=== PATIENT | male | born 1940 ===

== ENCOUNTER → 2017-01-24 | Outpatient (CLI) | payer OTHER ==
[~2017-01-24] MED LIST: IOHEXOL 180 MG/ML 10 ML VIAL. ONE; TRAM50TA PO; methylPREDNISolone ACETATE 40 MG/ML VIAL. ONE; methylPREDNISolone ACETATE 80 MG/ML VIAL. ONE
--- NOTE | 2017-01-25 04:29 | CONS ---
DATE OF CONSULTATION: 01/24/2017 CHIEF COMPLAINT: Low back pain and bilateral lower extremity pain. HISTORY OF PRESENT ILLNESS: This is a 77-year-old male who presents with history of pain for about 30 years, increasing worse over the past 2 years or so in the low back itself, also some pain radiating in the posterior gluteus, posterior lateral thighs and lower legs, but mostly staying in the low back. The patient reports it is spreading in the upper back and shoulders as well, worse with activity, not a result of any specific injury or action he is aware of, but has had multiple injuries to his back over the years including a body cast in 1957. The patient reports he has had all kinds of epidural injections, trigger point injections, physical therapy, chiropractic treatment, exercises, counseling over the years, also had radiofrequency ablation, but a year and a half ago at [facility] by his report and previous epidural injections, all of which were helpful, but only temporary. The patient reports it awakens him from sleep occasionally, but not every night. It does not affect his bowel or bladder control, but does affect his ability of walk. He is using cane, usually in his right hand. The patient reports no loss of motor function, but he does feel unstable without the cane. The patient reports the pain is a constant pain, sharp, stabbing across the low back, shooting into the legs with some tingling as well and aching. The patient reports also some muscle spastic pain in the low back and sharp pain that is worse with walking and changing positions. The patient has been taking tramadol, which he reports helps some, he usually takes in the morning once a day. The patient reports the pain is usually better in the morning and as the day goes on it gets worse and worse across the low back, into the lower extremities and into the upper mid back. The patient rates his disability rate from 0-10, 10 being the worst, 5 to 9 in all categories, family and home responsibilities, recreation, social activity, occupation, sexual behavior, self-care and life support activities. PAST MEDICAL HISTORY: Significant for hearing loss, hypertension, arthritis, and headaches. PREVIOUS SURGERY: Includes a left total hip replacement 3-4 years ago. Also, history of skin cancers. CURRENT MEDICATIONS: Include tramadol, lisinopril, and a cholesterol pill, he is unsure of the name. FAMILY HISTORY: Significant for hypertension as well. SOCIAL HISTORY: The patient does not smoke, does not drink alcohol. Lives at home on his own and [place] is currently retired. REVIEW OF SYSTEMS: The patient's review of systems is positive for those items mentioned in history of present illness. All systems were reviewed and otherwise negative. It is complete, full and well documented on the patient's chart. PHYSICAL EXAMINATION: VITAL SIGNS: The patient's blood pressure is 126/89, pulse 63, respirations 18, temperature 98.8 degrees Fahrenheit, height is 5 feet 10 inches, and weight is 233 pounds. GENERAL: The patient is awake, alert, oriented, appropriate, very pleasant demeanor. HEENT: Head shows normocephalic, atraumatic. Extraocular movements are intact and symmetrical. Oral cavity shows mucous membranes moist and pink. Dentition is intact. NECK: Shows anterior throat supple without palpable lymphadenopathy noted. Swallow reflex is symmetrical. Neck shows full rotational motion of cervical spine, both laterally as well as extension and flexion without difficulty. CHEST: Shows normal on inspection. Breath sounds are clear to auscultation bilaterally. HEART: Shows S1 and S2 clear. No murmurs auscultated. ABDOMEN: Soft, nontender, and nondistended. No palpable organomegaly is noted. No rebound or guarding demonstrated. BACK: The patient's back shows spine grossly midline. Normal appearing thoracic kyphosis and lumbar lordotic curvature. No previous bruises, lesions, rashes or scars are noted with inspection of the paraspinous muscles in the lumbar distribution is symmetrical without atrophy, hypertrophy, shows with palpation tenderness in the mid and lower lumbar distributions of the upper distribution, but only diffusely in the paraspinous musculature, themselves is firm, but without specific trigger points or asymmetry. No radiation of pain demonstrated. The patient shows no tenderness over the sacrum and sacroiliac regions with palpation. The patient has good rotational motion of the lumbar spine, both laterally as well as extension and flexion without significant difficulty or pain reported in normal range of motion greater than 10 degrees, right and left lateral as well as extension greater than 10 degrees, forward flexion 45 degrees. Lower extremities show deep tendon reflexes at 1+ in the patellar and tendo calcaneus tendons are equal. Motor exam is strong with 5/5 dorsiflexion, extension, quadriceps and hamstring flexion and are symmetrical bilaterally. Peripheral pulses are 1+ posterior tibial and dorsalis pedis pulses without any peripheral edema, no clubbing or cyanosis. Lower extremities are warm and dry to touch, equal in color and appearance. The patient is able to stand, stand on his toes without significant difficulty or pain reported. He is walking with a slight favoring gait to the left lower extremity and walks with a cane; however, in his right hand. IMPRESSION: 1. This is a 77-year-old male with long history of low back pain, bilateral lower extremity pain. 2. Lumbar spine films showing degenerative changes throughout the lower thoracic and lumbar spine, most severe at L3-L4 with multilevel degenerative disk disease, severe degenerative disk disease at L3-L4 laterally on the left at L2-L3 and on the right at L4-L5. 3. Hypertension. 4. Hypercholesterolemia. PLAN: Options were discussed with the patient including conservative medical management, physical therapy, interventional technique. He would like to pursue interventional techniques as he has had good luck with these in the past. We discussed a lumbar epidural steroid injection with the patient using description ____ as well as anatomical models to describe the procedure. Risks were then discussed including, but not limited to bleeding, infection, possibility of epidural hematoma, subsequent neurologic compromise, dural puncture, headaches, spinal cord and/or nerve damage, side effects of steroid medication and poor results regarding pain control. The patient understands and wishes to proceed. The patient will return to clinic in approximately 2 weeks for followup. He was counseled as to return appointment, activity level and side effects to be aware of. DIAGNOSIS: Lumbar radiculopathy with lumbar degenerative disk disease, lumbar spondylosis. PROCEDURE: Lumbar epidural steroid injection. He had a translaminar approach at the L4-L5 level using C-arm fluoroscopic guidance under sterile prep and drape using local anesthetic. MEDICATION INJECTED: Depo-Medrol 120 mg plus 10 of preservative-free normal saline and 2 mL of Isovue for contrast. CONDITION AT DISCHARGE: Stable. The patient tolerated procedure well, had no complications. LUIS ANTONIO AVILA MD DR: MILDRED/nicko JOB#: [id number] / [id number]
== END | disposition home or self-care (01) ==
LOC: PNCL 12:37
PROVIDERS: ATTEND Anesthesiology
DX: M51.16 Intervertebral disc disorders with radiculopathy, lumbar region (principal); M47.26 Other spondylosis with radiculopathy, lumbar region; E78.00 Pure hypercholesterolemia, unspecified; I10 Essential (primary) hypertension; M19.90 Unspecified osteoarthritis, unspecified site
CPT/HCPCS: 62323; J1030; J1040

== ENCOUNTER → 2017-02-14 | Outpatient (CLI) | payer OTHER ==
[~2017-02-14] MED LIST changes: +LISI-334 PO; +SIMV20TA3 PO
--- NOTE | 2017-02-15 01:43 | PAIN ---
DATE OF SERVICE: 02/14/2017 PROGRESS NOTE FOR PAIN CLINIC DIAGNOSES: Lumbar radiculopathy with lumbar spondylosis and lumbar degenerative disk disease. HISTORY OF PRESENT ILLNESS: The patient is a 77-year-old male, who returns for followup status post lumbar epidural steroid injection x 1. The patient reports about 50% improvement after the injection. Very pleased with the progress, he is increased activity with greater ease and comfort is doing very well for the first week and a half or so and after in the past few days, the pain began to return ____very slowly and not newly to its baseline level by his report. The patient reports his pain is anywhere from 4 to 8 on a scale 10, currently at 4, across the low back, worse with activity, bending, flexing, has been an aching pain. He has been doing, in his opinion, more activity lately, because the pain was better and feels this may brought it back on. The reports he has been applying heat to his back as well, which has been helpful, still not sleeping well at night, but he reports now because of waking from pain at this point. The patient reports no new motor or sensory deficits, no new bowel or bladder incontinence or other complaints. PHYSICAL EXAMINATION: VITAL SIGNS: The patient's blood pressure 156/92, pulse 70, respirations are 20, temperature is 98.2 degrees Fahrenheit. Weight is 232 pounds. GENERAL: The patient is awake, alert, oriented, appropriate, very pleasant demeanor. HEENT: Head shows normocephalic, atraumatic. Extraocular movements are intact, symmetrical. Oral cavity, mucous membranes are moist and pink. Dentition is intact. NECK: Shows anterior throat supple. Swallow reflex is symmetrical. CHEST: Shows normal on inspection. Breath sounds clear to auscultation bilaterally. HEART: Shows S1 and S2 clear. ABDOMEN: Soft, nontender, nondistended. BACK: Shows spine grossly midline. Lumbar paraspinous muscle shows symmetrical on inspection with palpation shows some very mild tenderness with palpation in the lower lumbar distribution only diffusely without radiation. No tenderness over the sacrum and sacroiliac regions. EXTREMITIES: Lower extremities showed deep tendon reflexes 1+ in the patellar and tendo calcaneus tendons are equal. Motor exam is strong with 5/5 dorsiflexion, extension, quadriceps and hamstring flexion and symmetrical. Options were discussed with the patient and the patient's old chart was reviewed as his current medication regimen updated. Current review of systems updated today as well. We will proceed with a second lumbar epidural steroid injection today with fluoroscopic guidance. Risks were again discussed including, but not limited to bleeding, infection, possibility of epidural hematoma, subsequent neurologic compromise, dural puncture, headache, spinal cord and/or nerve damage, side effects of steroid medication and poor results regarding pain control. The patient understands and wishes to proceed. The patient will return to clinic in approximately 2 weeks for followup. He was counseled on return appointment, activity level and side effects to be aware of. DIAGNOSES: Lumbar radiculopathy with lumbar degenerative disk disease, lumbar spondylosis. PROCEDURES: Lumbar epidural steroid injection in translaminar approach at L4-L5 level using C-arm fluoroscopic guidance under sterile prep and drape using local anesthetic. MEDICATIONS INJECTED: Depo-Medrol 120 mg plus with 10 mL of preservative-free normal saline and 2 mL of Isovue for contrast. CONDITION AT DISCHARGE: Stable. The patient tolerated the procedure well, had no complications. LUIS ANTONIO AVILA MD DR: MILDRED/nicko JOB#: [id number] / [id number]
== END | disposition home or self-care (01) ==
LOC: PNCL 09:49
PROVIDERS: ATTEND Anesthesiology
DX: M51.16 Intervertebral disc disorders with radiculopathy, lumbar region (principal); M47.26 Other spondylosis with radiculopathy, lumbar region
CPT/HCPCS: 62323; J1030; J1040

== ENCOUNTER → 2017-02-28 | Outpatient (CLI) | payer OTHER ==
--- NOTE | 2017-03-01 00:46 | PAIN ---
DATE OF SERVICE: 02/28/2017 PROGRESS NOTE FOR PAIN CLINIC DIAGNOSES: Lumbar radiculopathy with lumbar spondylosis and lumbar degenerative disk disease. HISTORY OF PRESENT ILLNESS: The patient is a 77-year-old male who returns for followup status post lumbar epidural steroid injections x 2. The patient reports approximately 20-30% overall improvement. The patient reports he has been increasing his activity with much greater ease and comfort though and feels like he is doing quite a bit better. The patient reports he has been increasing activity at home as well as doing some chores, he even rotated the tires on his car by himself a few days ago without any increase in pain. The patient reports he has been sleeping fairly well, wakens a few times during the night, but not because of the pain. The patient still reports pain in the low back, bilateral lower extremities and hips, mostly in the back and hips, posterior in the gluteus anywhere from a 4 to an 8 on a scale of 10. The patient reports it is a 4 currently today. The patient reports aching, some sharp, some cramping pain, but much better and he is quite pleased with his progress thus far. The patient reports no new motor or sensory deficits, no new bowel or bladder incontinence or other complaints. PHYSICAL EXAMINATION: VITAL SIGNS: Today, the patient's blood pressure is 155/92, pulse 65, respirations are 20, temperature 97.8 degrees Fahrenheit. Weight is 235 pounds. GENERAL: The patient is awake, alert, oriented, appropriate, very pleasant demeanor. HEENT: Head shows normocephalic, atraumatic. Extraocular movements are intact and symmetrical. Oral cavity, mucous membranes are moist and pink. Dentition is intact. NECK: Shows anterior throat supple without palpable lymphadenopathy noted. Swallow reflex is symmetrical. CHEST: Shows normal on inspection. Breath sounds are clear to auscultation bilaterally. HEART: Shows S1 and S2 clear. No murmurs are auscultated. ABDOMEN: Soft, nontender, nondistended. No palpable organomegaly is noted. BACK: Shows spine grossly in the midline. Lumbar paraspinous muscle shows symmetrical on inspection, shows with palpation, some moderate tenderness, but only very diffusely in the lower lumbar distribution only bilaterally without radiation. The patient shows good rotation and motion of the lumbar spine, both laterally as well as extension and flexion without difficulty. EXTREMITIES: Lower extremities showed deep tendon reflexes 1+ in the patellar and tendo calcaneus tendons. Motor exam is strong with 5/5 dorsiflexion, extension, quadriceps and hamstring flexion and symmetrical. Options were discussed with the patient. The patient's old chart was reviewed as his current medication regimen updated. Current review of systems updated today as well. We will proceed with the third in the series of lumbar epidural steroid injection with fluoroscopic guidance. Risks were again discussed including, but not limited to bleeding, infection, possibility of epidural hematoma and subsequent neurologic compromise, dural puncture, headaches, spinal cord and/or nerve damage, side effects of steroid medication and poor results regarding pain control. The patient understands and wishes to proceed. The patient will return to clinic in approximately 2 weeks for followup. He was counseled on return appointment, activity level and side effects to be aware of. DIAGNOSES: Lumbar radiculopathy with lumbar degenerative disk disease, lumbar spondylosis. PROCEDURE: Lumbar epidural steroid injection in translaminar approach at the L4-L5 level using C-arm fluoroscopic guidance under sterile prep and drape using local anesthetic. MEDICATION INJECTED: 120 mg Depo-Medrol plus 10 mL of preservative-free normal saline and 2 mL of Isovue for contrast. CONDITION AT DISCHARGE: Stable. The patient tolerated the procedure well, had no complications. LUIS ANTONIO AVILA MD DR: MILDRED/nicko JOB#: [id number] / [id number]
== END | disposition home or self-care (01) ==
LOC: PNCL 12:53
PROVIDERS: ATTEND Anesthesiology
DX: M51.16 Intervertebral disc disorders with radiculopathy, lumbar region (principal); M47.26 Other spondylosis with radiculopathy, lumbar region
CPT/HCPCS: 62323; J1030; J1040